=== PATIENT | female | born 1995 | race Caucasian/White ===

== ENCOUNTER 2018-11-26 18:55 | Emergency (ER) | payer OTHER ==
--- NOTE | 2018-11-26 19:10 | ER Report ---
History and Physical Time Seen By MD: 19:10 HPI/ROS CHIEF COMPLAINT: suicidal ideation HISTORY OF PRESENT ILLNESS: This is a 23 year old female. Suicidal ideation, has had for a long time, worsened recently, tonight did not feel safe at home, w orried she could follow through with this. Denies alcohol or drugs. No current medication or counseling for depression. Tearful and has been having increased stress. No other medical issues. Allergies: Coded Allergies: No Known Drug Allergies (Unverified , 11/26/18) Home Meds No Active Prescriptions or Reported Meds Reviewed Nurses Notes: Yes Constitutional Vital Sign - Last 24 Hours 11/26/18 11/26/18 11/26/18 11/26/18 19:01 19:07 19:30 20:00 Temp 98.3 Pulse 97 93 91 Resp 16 B/P (MAP) 140/88 140/88 (105) 128/88 (101) Pulse Ox 96 93 93 O2 Delivery Room Air Physical Exam General Appearance: Alert, is tearful at this time. Eyes: Pupils equal and round, slight scleral injection. ENT: Normal oral mucosa with moist mucous membranes. Neck: Neck is supple and non tender. Respiratory: Chest is non tender, lungs are clear to auscultation. Cardiac: regular rate and rhythm Gastrointestinal: Abdomen is soft and non tender, no masses, bowel sounds normal. Musculoskeletal: Extremities have full range of motion. Non tender. Skin: No rashes or lesions. DIFFERENTIAL DIAGNOSIS: After history and physical exam differential diagnosis was considered for suicidal ideation Medical Decision Making Data Points Result Diagram: 11/26/18194311/26/181943 Laboratory Hematology Test 11/26/18 19:04 11/26/18 19:44 Urine Color Straw Urine Clarity Clear Urine pH 5.0 pH (4.8-9.5) Urine Specific [place] 1.010 Urine Protein Negative mg/dL (NEGATIVE) Urine Glucose (UA) Negative mg/dL (NEGATIVE) Urine Ketones 20 mg/dL (NEGATIVE) Urine Blood Negative (NEGATIVE) Urine Nitrite Negative (NEGATIVE) Urine Bilirubin Negative (NEGATIVE) Urine Urobilinogen Negative mg/dL (0.2-1.9) Urine Leukocyte Esterase Negative (NEGATIVE) Urine RBC None /HPF (0-2/HPF) Urine WBC <1 /HPF (0-5/HPF) Urine Squamous Epithelial Cells None /LPF (</=FEW) Urine Bacteria Negative /HPF (NONE-FEW) Urine Mucus None /HPF (NONE-FEW) Urine HCG, Qualitative Negative (NEGATIVE) Urine Opiates Screen Negative Urine Barbiturates Screen Negative Ur Tricyclic Antidepressants Screen Negative Urine Phencyclidine Screen Negative Urine Amphetamines Screen Negative Urine Benzodiazepines Screen Negative Urine Cocaine Screen Negative Urine Cannabinoids Screen Positive Red Blood Count 4.75 M/uL (4.17-5.56) Mean Corpuscular Volume 94.8 fL (80.0-96.0) Mean Corpuscular Hemoglobin 33.5 pg (26.0-33.0) Mean Corpuscular Hemoglobin Concent 35.3 g/dL (32.0-36.0) Red Cell Distribution Width 12.6 % (11.5-14.5) Mean Platelet Volume 8.1 fL (7.2-11.1) Neutrophils (%) (Auto) 63.2 % (39.4-72.5) Lymphocytes (%) (Auto) 29.2 % (17.6-49.6) Monocytes (%) (Auto) 6.7 % (4.1-12.4) Eosinophils (%) (Auto) 0.4 % (0.4-6.7) Basophils (%) (Auto) 0.5 % (0.3-1.4) Nucleated RBC Relative Count (auto) 0.1 /100WBC Neutrophils # (Auto) 4.2 K/uL (2.0-7.4) Lymphocytes # (Auto) 1.9 K/uL (1.3-3.6) Monocytes # (Auto) 0.5 K/uL (0.3-1.0) Eosinophils # (Auto) 0.0 K/uL (0.0-0.5) Basophils # (Auto) 0.0 K/uL (0.0-0.1) Nucleated RBC Absolute Count (auto) 0.01 K/uL Sodium Level 139 mmol/L (137-145) Potassium Level 3.8 mmol/L (3.5-5.0) Chloride Level 101 mmol/L (98-107) Carbon Dioxide Level 24 mmol/L (22-31) Blood Urea Nitrogen 12 mg/dl (7-18) Creatinine 0.80 mg/dl (0.52-1.04) Glomerular Filtration Rate Calc > 60.0 Random Glucose 88 mg/dl (75-110) Calcium Level 9.7 mg/dl (8.4-10.2) Magnesium Level 2.0 mg/dl (1.7-2.2) Total Bilirubin 0.9 mg/dl (0.2-1.3) Aspartate Amino Transf (AST/SGOT) 44 U/L (0-35) Alanine Aminotransferase (ALT/SGPT) 33 U/L (0-56) Alkaline Phosphatase 70 U/L (0-126) Total Protein 7.5 g/dl (6.3-8.2) Albumin 4.9 g/dl (3.5-5.0) Salicylates Level < 10 mg/L Salicylate Last Dose Date unk Acetaminophen Level < 10 ug/ml Serum Alcohol < 10 mg/dl Chemistry Test 11/26/18 19:04 11/26/18 19:44 Urine Color Straw Urine Clarity Clear Urine pH 5.0 pH (4.8-9.5) Urine Specific [place] 1.010 Urine Protein Negative mg/dL (NEGATIVE) Urine Glucose (UA) Negative mg/dL (NEGATIVE) Urine Ketones 20 mg/dL (NEGATIVE) Urine Blood Negative (NEGATIVE) Urine Nitrite Negative (NEGATIVE) Urine Bilirubin Negative (NEGATIVE) Urine Urobilinogen Negative mg/dL (0.2-1.9) Urine Leukocyte Esterase Negative (NEGATIVE) Urine RBC None /HPF (0-2/HPF) Urine WBC <1 /HPF (0-5/HPF) Urine Squamous Epithelial Cells None /LPF (</=FEW) Urine Bacteria Negative /HPF (NONE-FEW) Urine Mucus None /HPF (NONE-FEW) Urine HCG, Qualitative Negative (NEGATIVE) Urine Opiates Screen Negative Urine Barbiturates Screen Negative Ur Tricyclic Antidepressants Screen Negative Urine Phencyclidine Screen Negative Urine Amphetamines Screen Negative Urine Benzodiazepines Screen Negative Urine Cocaine Screen Negative Urine Cannabinoids Screen Positive White Blood Count 6.7 k/uL (4.5-11.0) Red Blood Count 4.75 M/uL (4.17-5.56) Hemoglobin 15.9 g/dL (12.0-16.0) Hematocrit 45.0 % (34.0-47.0) Mean Corpuscular Volume 94.8 fL (80.0-96.0) Mean Corpuscular Hemoglobin 33.5 pg (26.0-33.0) Mean Corpuscular Hemoglobin Concent 35.3 g/dL (32.0-36.0) Red Cell Distribution Width 12.6 % (11.5-14.5) Platelet Count 282 K/uL (150-450) Mean Platelet Volume 8.1 fL (7.2-11.1) Neutrophils (%) (Auto) 63.2 % (39.4-72.5) Lymphocytes (%) (Auto) 29.2 % (17.6-49.6) Monocytes (%) (Auto) 6.7 % (4.1-12.4) Eosinophils (%) (Auto) 0.4 % (0.4-6.7) Basophils (%) (Auto) 0.5 % (0.3-1.4) Nucleated RBC Relative Count (auto) 0.1 /100WBC Neutrophils # (Auto) 4.2 K/uL (2.0-7.4) Lymphocytes # (Auto) 1.9 K/uL (1.3-3.6) Monocytes # (Auto) 0.5 K/uL (0.3-1.0) Eosinophils # (Auto) 0.0 K/uL (0.0-0.5) Basophils # (Auto) 0.0 K/uL (0.0-0.1) Nucleated RBC Absolute Count (auto) 0.01 K/uL Glomerular Filtration Rate Calc > 60.0 Calcium Level 9.7 mg/dl (8.4-10.2) Magnesium Level 2.0 mg/dl (1.7-2.2) Total Bilirubin 0.9 mg/dl (0.2-1.3) Aspartate Amino Transf (AST/SGOT) 44 U/L (0-35) Alanine Aminotransferase (ALT/SGPT) 33 U/L (0-56) Alkaline Phosphatase 70 U/L (0-126) Total Protein 7.5 g/dl (6.3-8.2) Albumin 4.9 g/dl (3.5-5.0) Salicylates Level < 10 mg/L Salicylate Last Dose Date unk Acetaminophen Level < 10 ug/ml Serum Alcohol < 10 mg/dl Toxicology Test 11/26/18 19:04 11/26/18 19:44 Urine Opiates Screen Negative Urine Barbiturates Screen Negative Ur Tricyclic Antidepressants Screen Negative Urine Phencyclidine Screen Negative Urine Amphetamines Screen Negative Urine Benzodiazepines Screen Negative Urine Cocaine Screen Negative Urine Cannabinoids Screen Positive Salicylates Level < 10 mg/L Salicylate Last Dose Date unk Acetaminophen Level < 10 ug/ml Serum Alcohol < 10 mg/dl Urinalysis Test 11/26/18 19:04 Urine Color Straw Urine Clarity Clear Urine pH 5.0 pH (4.8-9.5) Urine Specific [place] 1.010 Urine Protein Negative mg/dL (NEGATIVE) Urine Glucose (UA) Negative mg/dL (NEGATIVE) Urine Ketones 20 mg/dL (NEGATIVE) Urine Blood Negative (NEGATIVE) Urine Nitrite Negative (NEGATIVE) Urine Bilirubin Negative (NEGATIVE) Urine Urobilinogen Negative mg/dL (0.2-1.9) Urine Leukocyte Esterase Negative (NEGATIVE) Urine RBC None /HPF (0-2/HPF) Urine WBC <1 /HPF (0-5/HPF) Urine Squamous Epithelial Cells None /LPF (</=FEW) Urine Bacteria Negative /HPF (NONE-FEW) Urine Mucus None /HPF (NONE-FEW) Urine HCG, Qualitative Negative (NEGATIVE) ED Course/Re-evaluation ED Course Voluntary admission to behavioral health. Discussed with nurse practitioner, Caterina Gilman who accepted the patient for admission and behavioral health. Labs unremarkable other than cannabinoids on drug screen Decision to Disposition Date: Nov 26, 2018 Decision to Disposition Time: 21:10 Depart Departure Latest Vital Signs Vital Signs Date Time Temp Pulse Resp B/P (MAP) Pulse Ox O2 Delivery O2 Flow Rate FiO2 11/26/18 20:00 91 93 11/26/18 19:30 128/88 (101) 11/26/18 19:01 98.3 16 Room Air Impression: Primary Impression: Suicidal ideation Condition: Condition Unchanged Disposition: XFER TO [facility] New Scripts No Active Prescriptions or Reported Meds FRANCISCO HOLLOWAY MD Nov 26, 2018 19:10
[2018-11-26 19:30] VITALS: BP 128/88
[2018-11-26 20:11] LABS: PLATELET COUNT, AUTOMATED 282 K/uL (150-450)
== END 2018-11-26 21:50 ==
LOC: ER 19:08
DX: R45.851 Suicidal ideations (principal)
CPT/HCPCS: 36415; 80305; 80320; 80329; 81001; 81025; 82040; 82247; 82310; 82374; 82435; 82565; 82947; 83735; 84075; 84132; 84155; 84295; 84443; 84450; 84460; 84520; 85025; 99284

== ENCOUNTER 2018-11-26 21:33 | Inpatient (IN) | payer OTHER ==
[~2018-11-26] VITALS: Ht 160 cm; Wt 59.0 kg
[~2018-11-26 21:33] MED LIST: ACETAMINOPHEN 325 MG TAB PO PRN; MAG HYD/AL HYD/SIMETH 30ML UDC PO PRN
[2018-11-26] MEDS ORDERED: traZODone HCL 50 MG TAB PO PRN (22:20)
[2018-11-26] MEDS: NICOTINE INH SYSTEM 10 MG/INH INH PRN (22:32)
[2018-11-26 22:34] VITALS: BP 122/85
[2018-11-27 06:38] VITALS: BP 106/76
[2018-11-27] MEDS: MULTIVITAMINS TAB PO SCH (08:23)
[2018-11-27] MEDS: NICOTINE INH SYSTEM 10 MG/INH INH PRN ×3 (09:31→20:04)
[2018-11-27] MEDS ORDERED: lamoTRIgine 25 MG TAB PO ONE (17:50)
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
[2018-11-28 06:20] VITALS: BP 101/67
[2018-11-28] MEDS: MULTIVITAMINS TAB PO SCH (08:28)
[2018-11-28] MEDS ORDERED: lamoTRIgine 100 MG TAB PO ONE (09:00)
[2018-11-28] MEDS: NICOTINE INH SYSTEM 10 MG/INH INH PRN (12:43)
--- NOTE | 2018-11-28 17:05 | BHS Progress Note ---
BHS - Subjective Progress Notes Subjective Pt seen with team in conference room. depression with suicidal ideation continues, but less intense than yesterday, rating depression today at 5/10, and SI today at 4/10. Says "I feel safe here." Started lamictal yesterday, and so far well tolerated; no rash. Pt working actively on her treatment. Discussed DBT as our recommendation for further outpt work. Also discussed her substance use disorder and treatment options including IOP, AA meetings. Pt tearful at times, but showing a little more hope than yesterday. Continue titrating lamictal and suicide precautions. Suicidal Ideation: Ongoing Homicidal Ideation: None S - Objective Physical Exam Vital Signs Vital Signs 11/28/18 06:20 Temp 98.3 Pulse 58 Resp 15 B/P (MAP) 101/67 (78) Pulse Ox 97 O2 Delivery Room Air Muscle Strength and Tone: WNL Gait and Station: Steady [facility] Medications Reviewed: Side Effects, Benefits of Medication, Risks Allergies Reviewed: Yes Mental Status Exam General Appearance: Casual, Well Groomed, Good Eye Contact, Cooperative, Polite, Good Interaction, Tearful Speech: Clear, Spontaneous, Normal Rate, Normal Rhythm, Normal Volume Mood: Dysthmic/Depressed Affect: Sad, Tearful, Anxious Thought Process: Organized, Logical, Goal Directed Thought Content: Suicidal Ideation; No Homicidal Ideation, No Delusions, No Auditory Halllucinations, No Visual Hallucinations, No Thought Broadcasting, No Ideas of Reference, No Obsessions, No Compulsions, No Other Sensorium: Clear Cognition: Alert & Oriented-Person, Alert & Oriented-Place, Alert & Oriented- Time, [id number] Memory: Immediate, Recent, Remote Intelligence: Above Average Insight Judgment: Fair [facility] Assessment and Plan [id number] Encounter Date: Nov 28, 2018 [id number] Encounter Time: 09:00 [facility] Plan: Necessary Precautions, Individual/Group Therapy, Admin/Titrate Meds, Educate Patient Tobacco Medications: Started Multpiple Antipsychotics Used: No Problems: (1) Major depressive disorder (2) Cluster B personality disorder (3) Substance use disorder EDGAR SLAUGHTER MD Nov 28, 2018 17:05
[2018-11-28] MEDS: NICOTINE CARTRIDGE 1 EA PO PRN (17:11)
[2018-11-29 05:25] VITALS: BP 98/73
[2018-11-29] MEDS: MULTIVITAMINS TAB PO SCH (08:29)
[2018-11-29] MEDS ORDERED: lamoTRIgine 25 MG TAB PO ONE (09:00)
[2018-11-29] MEDS: NICOTINE INH SYSTEM 10 MG/INH INH PRN ×3 (11:08→21:12)
--- NOTE | 2018-11-29 15:18 | BHS Progress Note ---
S - Subjective Progress Notes Subjective Pt seen in treatment team with her mother on speaker phone. Pt doing better today, less depressed. We reviewed her near-suicide attempt on the day of admission, including her mother's experience of it. Pt is still very angry with the roommate with whom she argued that morning and feels like she is not ready to talk to this roommate yet-- we encouraged her to do so prior to discharge. Pt is participating well in groups and learning some DBT foundations. She is tolerating lamictal well; she denies rash. We will continue psycho-ed today, work of wellness and recovery plan tomorrow, with tentative discharge tomorrow late afternoon if she is stable. Suicidal Ideation: None Homicidal Ideation: None S - Objective Physical Exam Vital Signs Vital Signs 11/29/18 05:25 Temp 98.0 Pulse 65 Resp 15 B/P (MAP) 98/73 (81) Pulse Ox 95 O2 Delivery Room Air Muscle Strength and Tone: WNL Gait and Station: Steady [facility] Medications Reviewed: Side Effects, Benefits of Medication, Risks Allergies Reviewed: Yes Mental Status Exam General Appearance: Casual, Well Groomed, Good Eye Contact, Cooperative, Polite, Good Interaction, Tearful Speech: Clear, Spontaneous, Normal Rate, Normal Rhythm, Normal Volume Mood: Dysthmic/Depressed Affect: Sad, Tearful, Anxious Thought Process: Organized, Logical, Goal Directed Thought Content: Suicidal Ideation (resolving); No Homicidal Ideation, No Delusions, No Auditory Halllucinations, No Visual Hallucinations, No Thought Broadcasting, No Ideas of Reference, No Obsessions, No Compulsions, No Other Sensorium: Clear Cognition: Alert & Oriented-Person, Alert & Oriented-Place, Alert & Oriented- Time, [id number] Memory: Immediate, Recent, Remote Intelligence: Above Average Insight Judgment: Fair [facility] Assessment and Plan [id number] Encounter Date: Nov 29, 2018 [id number] Encounter Time: 10:00 [facility] Plan: Necessary Precautions, Individual/Group Therapy, Admin/Titrate Meds, Educate Patient Tobacco Medications: Started Multpiple Antipsychotics Used: No Problems: (1) Major depressive disorder (2) Cluster B personality disorder (3) Substance use disorder EDGAR SLAUGHTER MD Nov 29, 2018 15:18
[2018-11-29] MEDS ORDERED: NICOTINE INH SYSTEM 10 MG/INH INH ONE (15:21)
[2018-11-29] MEDS ORDERED: ACETAMINOPHEN 325 MG TAB PO PRN (15:40)
[2018-11-29] MEDS ORDERED: MAG HYD/AL HYD/SIMETH 30ML UDC PO PRN (15:40)
[2018-11-29] MEDS: NICOTINE CARTRIDGE 1 EA PO PRN (21:12)
[2018-11-30 06:13] VITALS: BP 98/58
[2018-11-30] MEDS ORDERED: lamoTRIgine 100 MG TAB PO SCH (09:00)
[2018-11-30] MEDS ORDERED: MULTIVITAMINS TAB PO SCH (09:00)
[2018-11-30] MEDS: NICOTINE INH SYSTEM 10 MG/INH INH PRN (12:01)
[2018-11-30 12:11] VITALS: BP 110/75
--- NOTE | 2018-11-30 13:18 | [facility] Discharge Summary ---
[facility] Discharge Summary Lklz-qt-Mans Encounter Date: Nov 30, 2018 Pmdl-jy-Dtyw Encounter Time: 08:30 Reason-Hosp/Final Diag (DSM-V): (1) Major depressive disorder Hospital Course & Plan: CHIEF COMPLAINT "I got really suicidal yesterday." HISTORY OF PRESENT ILLNESS This is the first-ever psychiatric admission for this 23-year-old woman who was admitted on a voluntary basis from the emergency room for suicidal ideation. The patient says that she has had suicidal thoughts on and off for many years, and yesterday they got very intense after she had an argument with one of her roommates, who was very rude to the patient. She verbalized suicidal ideation to her second roommate, and then she left the house and went driving in her car for several hours out to a remote location. She noticed when she got cell phone medical reception specialist that she had multiple calls, and apparently the roommate had summoned help from the police and had notified the patient's mother. The patient then called her mother, who advised her to come to the emergency room. The patient did come voluntarily to the ER, where she was tearful but was cooperative. She reports that she has had suicidal ideation on and off for many years due to several traumas that she has been through, but for the past several months, her depression has become significant, and she has not been getting out of bed; she has not been motivated; she has not been leaving the house, and she has been skipping classes. She has been maintaining relatively good grades because she says she is able to study hard right before the tests and do okay. The patient describes mood swings where she feels happy and full of hope for a few minutes each day, but that is a fleeting experience and disappears, and she falls back to a baseline of a depressed mood. She denies ever any history of euphoric pilar. HOSPITAL COURSE Pt was admitted to [facility] and maintained on suicide precautions. She was cooperative and actively engaged in treatment. She participated in all groups, individual, and mileau therapies. We focused treatment on her learning connection between substance abuse and depression, learning DBT skills for borderline personality. Initially she was very tearful, with suicidal ideation, but by day three SI was denied, and her affect brightened. We chose to start lamictal for depression-- this mood stabilizer was chosen over a straight antidepressant because she has had sexual side effects to SSRI's in past. Also because she has a lot of minor mood swings and impulsive reckless behaviors-- she does not have a bipolar disorder, but she may be more at risk for antidepressant-induced mood instability. Pt is aware of risk of life- threatening Melara Clem Rash and knows to notify provider is any rash noted. Lamictal was titrated to 100 mg and was well tolerated. We held team meetings with her mother on speaker phone and mother was very supportive. We verified that pt's two roommates have removed firearms from the apartment. Pt's mother and father came down from [place] on day of discharge to pick her up, and the three of them will attend thermometer maker meeting tomorrow. We arranged outpatient therapy with [facility], and pt will follow up for meds at [facility]. (2) Cluster B personality disorder (3) Substance use disorder Physical Exam Latest Vital Signs Vital Signs 11/30/18 11/30/18 06:13 12:11 Temp 99.1 Pulse 88 Resp 15 B/P (MAP) 110/75 (87) Pulse Ox 96 O2 Delivery Room Air Mental Status Exam General Appearance: Casual, Well Groomed, Good Eye Contact, Cooperative, Polite, Good Interaction Speech: Clear, Spontaneous, Normal Rate, Normal Rhythm, Normal Volume, Normal Tone Mood: Euthymic Affect: Full and Appropriate, Calm Thought Process: Organized, Logical, Goal Directed Thought Content: No Suicidal Ideation, No Homicidal Ideation, No Delusions, No Auditory Halllucinations, No Visual Hallucinations, No Thought Broadcasting, No Ideas of Reference, No Obsessions, No Compulsions, No Other Sensorium: Clear Cognition: Alert & Oriented-Person, Alert & Oriented-Place, Alert & Oriented- Time, [id number]-[id number] Memory: Immediate, Recent, Remote Intelligence: Above Average Insight Judgment: Fair Departure Item Value Date Time White Blood Count 6.7 k/uL 11/26/181943 Red Blood Count 4.75 M/uL 11/26/181943 Hemoglobin 15.9 g/dL 11/26/181943 Hematocrit 45.0 % 11/26/181943 Mean Corpuscular Volume 94.8 fL 11/26/181943 Mean Corpuscular Hemoglobin 33.5 pg H 11/26/181943 Mean Corpuscular Hemoglobin Concent 35.3 g/dL 11/26/181943 Red Cell Distribution Width 12.6 % 11/26/181943 Platelet Count 282 K/uL 11/26/181943 Sodium Level 139 mmol/L 11/26/181943 Potassium Level 3.8 mmol/L 11/26/181943 Chloride Level 101 mmol/L 11/26/181943 Carbon Dioxide Level 24 mmol/L 11/26/181943 Blood Urea Nitrogen 12 mg/dl 11/26/181943 Creatinine 0.80 mg/dl 11/26/181943 Glomerular Filtration Rate Calc > 60.0 11/26/181943 Random Glucose 88 mg/dl 11/26/181943 Calcium Level 9.7 mg/dl 11/26/181943 Magnesium Level 2.0 mg/dl 11/26/181943 Total Bilirubin 0.9 mg/dl 11/26/181943 Aspartate Amino Transf (AST/SGOT) 44 U/L H 11/26/181943 Alanine Aminotransferase (ALT/SGPT) 33 U/L 11/26/181943 Alkaline Phosphatase 70 U/L 11/26/181943 Total Protein 7.5 g/dl 11/26/181943 Albumin 4.9 g/dl 11/26/181943 Thyroid Stimulating Hormone (TSH) 0.89 uIU/ml 11/26/18 194 Urine Color Straw 11/26/181903 Urine Clarity Clear 11/26/181903 Urine pH 5.0 pH 11/26/181903 Urine Specific [place] 1.010 11/26/181903 Urine Protein Negative mg/dL 11/26/181903 Urine Glucose (UA) Negative mg/dL 11/26/181903 Urine Ketones 20 mg/dL H 11/26/181903 Urine Blood Negative 11/26/181903 Urine Nitrite Negative 11/26/181903 Urine Bilirubin Negative 11/26/181903 Urine Urobilinogen Negative mg/dL 11/26/181903 Urine Leukocyte Esterase Negative 11/26/181903 Urine RBC None /HPF 11/26/181903 Urine WBC <1 /HPF 11/26/181903 Urine Squamous Epithelial Cells None /LPF 11/26/181903 Urine Bacteria Negative /HPF 11/26/181903 Urine Mucus None /HPF 11/26/181903 Urine HCG, Qualitative Negative 11/26/181903 Salicylates Level < 10 mg/L 11/26/181943 Salicylate Last Dose Date unk 11/26/181943 Urine Opiates Screen Negative 11/26/181903 Acetaminophen Level < 10 ug/ml 11/26/181943 Urine Barbiturates Screen Negative 11/26/181903 Ur Tricyclic Antidepressants Screen Negative 11/26/181903 Urine Phencyclidine Screen Negative 11/26/181903 Urine Amphetamines Screen Negative 11/26/181903 Urine Benzodiazepines Screen Negative 11/26/181903 Urine Cocaine Screen Negative 11/26/181903 Urine Cannabinoids Screen Positive 11/26/181903 Serum Alcohol < 10 mg/dl 11/26/181943 Condition: Improved Discharge to: Home Discharge Instructions Home Meds No Active Prescriptions or Reported Meds Multpiple Antipsychotics Used: No Diet: Regular Activity: As Tolerated EDGAR SLAUGHTER MD Nov 30, 2018 13:18
[2018-11-30] MEDS ORDERED: LAMO100T56 PO (15:42)
[2018-11-30] MEDS ORDERED: NICOTROL CARTRIDGE PO (15:43)
[2018-11-30] MEDS ORDERED: NIC10R INH (15:46)
== END 2018-11-30 16:16 | disposition home or self-care (01) | DRG 881 ==
LOC: BHS 21:33 → UNDOADMIN 21:33 → BHS 22:00 → UNDODISIN 11-29 12:55
PROVIDERS: ADMIT Registered Nurse Psychiatric/Mental Health, Adult; ATTEND Registered Nurse Psychiatric/Mental Health, Adult
DX: F32.9 Major depressive disorder, single episode, unspecified (principal); R45.851 Suicidal ideations; F17.290 Nicotine dependence, other tobacco product, uncomplicated; F10.20 Alcohol dependence, uncomplicated; F12.20 Cannabis dependence, uncomplicated; F60.9 Personality disorder, unspecified; F15.90 Other stimulant use, unspecified, uncomplicated; F13.90 Sedative, hypnotic, or anxiolytic use, unspecified, uncomplicated; F11.90 Opioid use, unspecified, uncomplicated; Z91.5 Personal history of self-harm; Z81.1 Family history of alcohol abuse and dependence; Z81.8 Family history of other mental and behavioral disorders; Z59.2 Discord with neighbors, lodgers and landlord; Z91.410 Personal history of adult physical and sexual abuse; Z62.810 Personal history of physical and sexual abuse in childhood